=== PATIENT | male | born 1995 | race Caucasian/White ===

== ENCOUNTER 2017-04-17 10:41 | Emergency (ER) | payer OTHER ==
[2017-04-17 10:55] VITALS: BP 123/85; PULSE 81; TEMP 99.5; BMI 39.9
--- NOTE | 2017-04-17 11:04 | PDOC ---
History of Present Illness - General Chief Complaint: Chest Pain Stated Complaint: CHEST PAIN Time Seen by Provider: 04/17/17 10:45 History Source: Patient Exam Limitations: No Limitations - History of Present Illness Initial Comments: 04/17/17 10:46 This is a 22 yo M who presents to the ER as a walk in He reports midsternal chest pain with movement He states pain is 7/10 when he has the pain, no radiation to the back or jaw Pt denies shortness of breath, cough, wheezing Pt denies palpitations Pt denies chest trauma recently Pt states he has had these symptoms for the past 4 years Typically, he had this pain and can extend his back/chest wall which cause a pop and then re -sets something He has had his current symptoms for the past 4 days without the ability to "Reset" his chest wall PMH: denies PSH: denies Meds: denies ALL: NKDA Family History: Father [place] age 62, Mother diabetes Social: Works as patient transporter, Denies tobacco or drug use, social ETOH GENERAL/CONSTITUTIONAL: No: fever, chills, weakness, loss of appetite. HEAD, EYES, EARS, NOSE AND THROAT: No: change in vision, ear pain, discharge, sore throat, throat swelling. CARDIOVASCULAR: Yes: intermittent chest pain No: lightheadedness, palpitations, syncope RESPIRATORY: No: cough, shortness of breath, wheezing, hemoptysis, stridor. GASTROINTESTINAL: No: nausea, vomiting, diarrhea, abdominal cramping, rectal bleeding, constipation. GENITOURINARY: No: dysuria, hematuria, frequency, urgency, flank pain. MUSCULOSKELETAL: No: back pain, neck pain, joint pain, muscle swelling or pain SKIN: No: lesions, pallor, rash or easy bruising. NEUROLOGIC: No: headache, vertigo, paresthesias, weakness ENDOCRINE: No: unexplained weight gain or loss HEMATOLOGIC/LYMPHATIC: No: anemia, easy bleeding, swelling nodes. GENERAL: The patient is in no acute distress. HEAD: Normal with no signs of trauma. EYES: PERRLA, EOMI, sclera anicteric, conjunctiva clear. NECK: Normal range of motion, supple without lymphadenopathy, JVD, or masses. LUNGS: Breath sounds equal, clear to auscultation bilaterally. No wheezes, and no crackles. HEART: Regular rate and rhythm, normal S1 and S2 without murmur, rub or gallop. no chest wall tenderness at this time. No chest pain at this time ABDOMEN: Soft, nontender, normoactive bowel sounds. No guarding, no rebound. No masses palpable. EXTREMITIES: Normal range of motion, no edema. No clubbing or cyanosis. No erythema, or tenderness. NEUROLOGICAL: Cranial nerves II through XII grossly intact. Normal speech. No focal neurological deficits. MUSCULOSKELETAL: Back non-tender to palpation, no CVA tenderness SKIN: no rashes 04/17/17 11:09 04/17/17 11:10 Past History - Past Medical History Allergies/Adverse Reactions: Allergies Allergy/AdvReac Type Severity Reaction Status Date / Time No Known Allergies Allergy Verified 04/17/17 10:51 Home Medications: Ambulatory Orders NK [No Known Home Medication] 04/17/17 Heart Score/ECG Review #1 ECG reviewed & interpreted by me at: 11:04 General ECG Interpretation: Sinus Rhythm, Normal Rate, Normal Intervals, No acute ischemic changes ED Treatment Course - RADIOLOGY Radiology Studies Ordered: Category Date Time Status CHEST PA & LAT [RAD] Stat Radiology 04/17/17 10:46 Ordered Medical Decision Making - Medical Decision Making 04/17/17 11:05 This is a 22 yo M presenting to the ER with Right chest wall pain No other symptoms concerning for pneumothorax, pneumonia, bronchitis Pt has had these symptoms for years and it is usually related to chest wall movement Will do CXR Will do xray Sternum Will do EKG likely costochonditis vs precordial catch 04/17/17 11:10 *DC/Admit/Observation/Transfer Diagnosis at time of Disposition: Precordial catch syndrome - Discharge Dispostion Disposition: HOME Condition at time of disposition: Stable Admit: No - Referrals Referrals: Higinio Guardado MD [Staff Physician] - - Patient Instructions Printed Discharge Instructions: DI for Atypical Chest Pain, DI for Costochondritis Additional Instructions: Thank you for coming in to the ER today Please take motrin for pain Please follow up with your primary care physician Please review the information you were given in the ER - Post Discharge Activity Work/School Note: Back to Work
--- NOTE | 2017-04-19 18:28 | EKG ---
Test Reason : Blood Pressure : / mmHG Vent. Rate : 073 BPM Atrial Rate : 073 BPM P-R Int : 136 ms QRS Dur : 100 ms QT Int : 376 ms P-R-T Axes : 087 031 020 degrees QTc Int : 414 ms NORMAL SINUS RHYTHM NO PREVIOUS ECGS AVAILABLE Confirmed by MD LISA, GILDA ([id number]) on 04/19/2017 6:28:41 PM Referred By: Renae PEÑALOZA, Confirmed By:GILDA GONZALEZ MD
== END 2017-04-17 12:20 | disposition home or self-care (01) ==
LOC: FER 10:41
DX: R07.2 Precordial pain (principal)
CPT/HCPCS: 71020-TC; 71120-TC; 93005; 99282-25

== ENCOUNTER 2017-04-22 23:37 | Emergency (ER) | payer OTHER ==
[2017-04-22 23:45] VITALS: BP 135/92; PULSE 97; TEMP 97.8; BMI 39.9
--- NOTE | 2017-04-22 23:46 | PDOC ---
History of Present Illness - General Chief Complaint: Injury Stated Complaint: KNEE PAIN Time Seen by Provider: 04/22/17 23:40 History Source: Patient Exam Limitations: No Limitations - History of Present Illness Initial Comments: 04/22/17 23:44 This is an obese 22-year-old who comes in complaining of left knee pain. Patient has a history of a torn ACL in the past and never was surgically repaired. Patient said he was at a family pump function and was doing some jumping when he came down with all of his weight on his left leg and heard a crack in his left knee. Patient's complaining now of some pain in his lateral left knee area. Patient is able to ambulate with nearly full weight-bearing on that leg. PAST MEDICAL HISTORY: As per history of present illness PAST SURGICAL HISTORY: no significant history FAMILY HISTORY: no pertinant history SOCIAL HISTORY: Pt lives with family and is employed. MEDICATIONS: reviewed ALLERGIES: As per nursing notes Review of Systems General: No fevers or chills, no weakness, no weight loss HEENT: No change in vision. No sore throat,. No ear pain CardioVascular: No chest pain or shortness of breath Respiratory:No cough, or wheezing. Gastrointestinal: no nausea, vomitting, diarrhea or constipation, No rectal bleeding Genitourinary: No dysuria, hematuria, or frequency Musculoskeletal: Left knee sprain Neurologic: No headache, vertigo, dizziness or loss of consciousness Psychiatric: nor depression Skin: No rashes or easy bruising Endocrine: no increased thirst or abnormal weight change Allergic: no skin or latex allergy All other systems reviewed and normal GENERAL: The patient is awake, alert, and fully oriented, in no acute distress. HEAD: Normal with no signs of trauma. EYES: Pupils equal, round and reactive to light, extraocular movements intact, sclera anicteric, conjunctiva clear. EXTREMITIES: Normal range of motion, no edema. Left knee: There is some mild tenderness on palpation bilaterally. There is no ligamentous instability on testing. Neurovascular distal is intact. There is no detectable swelling of the knee while or palpable effusion. NEUROLOGICAL: Normal speech, normal gait. PSYCH: Normal mood, normal affect. SKIN: Warm, Dry, normal turgor, no rashes or lesions noted. Assessment and plan: This is a 22-year-old male who comes in complaining of left knee pain. On exam patient does have some tenderness over the LCL but no laxity of the ligaments. Patient given London wrap and told to follow-up with an orthopedist. Patient referred to Dr. Alcantar for orthopnea Past History - Past Medical History Allergies/Adverse Reactions: Allergies Allergy/AdvReac Type Severity Reaction Status Date / Time No Known Allergies Allergy Verified 04/22/17 23:38 Home Medications: Ambulatory Orders NK [No Known Home Medication] 04/17/17 - Psycho/Social/Smoking Cessation Hx Anxiety: No Suicidal Ideation: No Smoking History: Never smoked Hx Alcohol Use: Yes (SOCIALLY) Drug/Substance Use Hx: No Substance Use Type: None *DC/Admit/Observation/Transfer Diagnosis at time of Disposition: Sprain of left knee Qualifiers: Encounter type: initial encounter Involved ligament of knee: lateral collateral ligament Qualified Code(s): S83.422A - Sprain of lateral collateral ligament of left knee, initial encounter - Discharge Dispostion Disposition: HOME Condition at time of disposition: Stable - Referrals Referrals: Tony Daniels MD [Staff Physician] - - Patient Instructions Printed Discharge Instructions: DI for Knee Sprain Additional Instructions: Wear the [place] bandage on the knee while awake. Tylenol or Motrin as needed for pain. Follow-up with Dr. Daniels the orthopedist on Saturday Return to the emergency department immediately with ANY new, persistent or worsening symptoms. Continue any medications as previously prescribed by your physician. You should follow up with your primary doctor as soon as possible regarding today's emergency department visit. . Please make sure your doctor reviews the results of your emergency evaluation. Thank you for coming to the Emergency Department today for your care. It was a pleasure to see you today. Please note that your evaluation is INCOMPLETE until you follow-up with your doctor. - Post Discharge Activity Work/School Note: Back to Work
== END 2017-04-22 23:55 | disposition home or self-care (01) ==
LOC: FER 23:37
DX: S83.422A Sprain of lateral collateral ligament of left knee, initial encounter (principal); X58.XXXA Exposure to other specified factors, initial encounter; Y93.89 Activity, other specified; Y92.9 Unspecified place or not applicable
CPT/HCPCS: 99281-25